=== PATIENT | female | born 1960 | race Caucasian/White ===

== ENCOUNTER 2021-08-05 22:50 | Inpatient (IN) | payer MEDICAID ==
[2021-08-05] MEDS ORDERED: DILTIAZEM DRIP BOLUS FROM BAG 1 MG SOLN IV ONE (22:58)
[2021-08-05] MEDS ORDERED: SODIUM CHLORIDE 0.9% 1,000 ML IV STA (22:58)
[2021-08-05 23:08] VITALS: TEMP 99.4
[2021-08-05 23:13] LABS: Basophils % (A) 1 %; Eosinophils # (A) 0.1 k/uL (0-0.7); Eosinophils % (A) 1 %; HCT 41.9 % (34.0-46.0); HGB 14.1 gm/dL (11.4-16.0); Lymphocytes # (A) 2.2 k/uL (1.0-4.8); Lymphocytes % (A) 32 %; MCH 31.9 pg (25.0-35.0); MCHC 33.7 g/dL (31.0-37.0); MCV 94.8 fL (80.0-100.0); Monocytes # (A) 0.3 k/uL (0-1.0); Monocytes % (A) 4 %; Neutrophils # (A) 4.3 k/uL (1.3-7.7); Neutrophils % (A) 62 %; Platelet Count 187 k/uL (150-450); RBC 4.41 m/uL (3.80-5.40); RDW 11.8 % (11.5-15.5)
[2021-08-05] MEDS ORDERED: DILTIAZEM 125 MG in SODIUM CHLORIDE 0.9% 100 ML IV SCH (23:15)
[2021-08-05 23:23] LABS: ALT 49 U/L (4-34); African American GFR (CKD) >90 (>60 ml/min/1.73 sqM); Albumin 3.7 g/dL (3.5-5.0); Anion Gap 11 mmol/L; Blood Urea Nitrogen 12 mg/dL (7-17); Calcium 8.4 mg/dL (8.4-10.2); Carbon Dioxide 21 mmol/L (22-30); Chloride 105 mmol/L (98-107); Glucose 164 mg/dL (74-99); Magnesium 1.6 mg/dL (1.6-2.3); Non-African American GFR(CKD) >90 (>60 ml/min/1.73 sqM); Sodium 137 mmol/L (137-145); Total Protein 6.5 g/dL (6.3-8.2)
[2021-08-05 23:27] LABS: AST 60 U/L (14-36); INR 0.9 (<1.2); Partial Thromboplastin Time 22.2 sec (22.0-30.0); Potassium 4.5 mmol/L (3.5-5.1); Prothrombin Time 9.9 sec (9.0-12.0)
[2021-08-05 23:28] LABS: Alkaline Phosphatase 69 U/L (38-126)
--- NOTE | 2021-08-05 23:42 | ED ---
Arrhythmia/Palpitations HPI - General Chief Complaint: Arrhythmia/Palpitations Stated Complaint: Arrhythmia Time Seen by Provider: 08/05/21 22:50 Source: patient, EMS, RN notes reviewed Limitations: no limitations - History of Present Illness Initial Comments: [id number] female history of thyroid disease who had the onset today of palpitations with elevated heart rate. Her son is a deputy director of nursing and did find in her heart rate was quite fast. EMS was called she was found to have elevated heart rate she was given adenosine twice it did slow the heart rate down and we were able identify atrial flutter. Patient denies any overt chest pain she does state that recently however she's had fever she's also lost her taste and smell. Additionally she's been under last stress lately as her within the week or so after a prolonged illness. She has no person al history of heart or lung disease. She is very anxious. MD Complaint: rapid heart beat, palpitations - Related Data Allergies Allergy/AdvReac Type Severity Reaction Status Date / Time No Known Allergies Allergy Verified 08/05/21 23:20 Review of Systems ROS Statement: Those systems with pertinent positive or pertinent negative responses have been documented in the HPI. ROS Other: All systems not noted in ROS Statement are negative. Past Medical History Past Medical History: Diabetes Mellitus, Thyroid Disorder History of Any Multi-Drug Resistant Organisms: None Reported Additional Past Surgical History / Comment(s): couple of D&C's Past Psychological History: No Psychological Hx Reported Smoking Status: Never smoker Past Alcohol Use History: Occasional Past Drug Use History: None Reported General Exam - General Exam Comments Initial Comments: This is a well-developed well-nourished awake alert oriented 3 female Limitations: no limitations General appearance: alert, anxious Head exam: Present: atraumatic, normocephalic, normal inspection Eye exam: Present: normal appearance, PERRL, EOMI. Absent: scleral icterus, conjunctival injection, periorbital swelling ENT exam: Present: normal exam, mucous membranes moist Neck exam: Present: normal inspection. Absent: tenderness, meningismus, lymphadenopathy Respiratory exam: Present: normal lung sounds bilaterally. Absent: respiratory distress, wheezes, rales, rhonchi, stridor Cardiovascular Exam: Present: tachycardia, irregular rhythm. Absent: systolic murmur, diastolic murmur, rubs, gallop, clicks GI/Abdominal exam: Present: soft, normal bowel sounds. Absent: distended, tenderness, guarding, rebound, rigid Extremities exam: Present: normal inspection, full ROM, normal capillary refill. Absent: tenderness, pedal edema, joint swelling, calf tenderness Back exam: Present: normal inspection Neurological exam: Present: alert, oriented X3, CN II-XII intact Psychiatric exam: Present: normal affect, normal mood Skin exam: Present: warm, dry, intact, normal color. Absent: rash Course Vital Signs 08/05/21 08/05/21 22:53 23:44 Temperature 99.4 F Pulse Rate 145 H 163 H Respiratory 22 22 Rate Blood Pressure 193/112 O2 Sat by Pulse 95 95 Oximetry - Reevaluation(s) Reevaluation #1: 08/06/21 00:39 Reevaluation patient finds that she is converted to a normal sinus rhythm after IV Cardizem was given. She feels much improved Reevaluation #2: 08/06/21 00:49 Post conversion EKG shows a normal sinus rhythm of 80 DC interval 138 QRS duration 80 QT/QTC 374/[address]-T wave changes EKG Findings - EKG Results: EKG: interpreted by TANK (Atrial fibrillation with rapid ventricular response rate was 73 QRS 70 QT/QTC 288/[address] configuration) Medical Decision Making - Medical Decision Making I did discuss the findings with the patient and her son was present. Patient is feeling much improved. She is converted to normal sinus rhythm I did discuss case with . Patient will be admitted for evaluation by cardiology. Troponins will be trended echocardiogram in the a.m. Patient retook 81 mg asp irin today she will get 81 mg more - Lab Data Result diagrams: 08/05/21 23:00 08/05/21 23:00 Lab Results 08/05/21 08/05/21 08/05/21 Range/Units 23:00 23:00 23:00 WBC 7.0 (3.8-10.6) k/uL RBC 4.41 (3.80-5.40) m/uL Hgb 14.1 (11.4-16.0) gm/dL Hct 41.9 (34.0-46.0) % MCV 94.8 (80.0-100.0) fL MCH 31.9 (25.0-35.0) pg MCHC 33.7 (31.0-37.0) g/dL RDW 11.8 (11.5-15.5) % Plt Count 187 (150-450) k/uL MPV 8.0 Neutrophils % 62 % Lymphocytes % 32 % Monocytes % 4 % Eosinophils % 1 % Basophils % 1 % Neutrophils # 4.3 (1.3-7.7) k/uL Lymphocytes # 2.2 (1.0-4.8) k/uL Monocytes # 0.3 (0-1.0) k/uL Eosinophils # 0.1 (0-0.7) k/uL Basophils # 0.0 (0-0.2) k/uL PT 9.9 (9.0-12.0) sec INR 0.9 (<1.2) APTT 22.2 (22.0-30.0) sec Sodium 137 (137-145) mmol/L Potassium 4.5 (3.5-5.1) mmol/L Chloride 105 (98-107) mmol/L Carbon Dioxide 21 L (22-30) mmol/L Anion Gap 11 mmol/L BUN 12 (7-17) mg/dL Creatinine 0.54 (0.52-1.04) mg/dL Est GFR (CKD-EPI)AfAm >90 (>60 ml/min/1.73 sqM) Est GFR (CKD-EPI)NonAf >90 (>60 ml/min/1.73 sqM) Glucose 164 H (74-99) mg/dL Calcium 8.4 (8.4-10.2) mg/dL Magnesium 1.6 (1.6-2.3) mg/dL Total Bilirubin 1.0 (0.2-1.3) mg/dL AST 60 H (14-36) U/L ALT 49 H (4-34) U/L Alkaline Phosphatase 69 (38-126) U/L Troponin I (0.000-0.034) ng/mL Total Protein 6.5 (6.3-8.2) g/dL Albumin 3.7 (3.5-5.0) g/dL TSH 1.300 (0.465-4.680) mIU/L 08/05/21 Range/Units 23:00 WBC (3.8-10.6) k/uL RBC (3.80-5.40) m/uL Hgb (11.4-16.0) gm/dL Hct (34.0-46.0) % MCV (80.0-100.0) fL MCH (25.0-35.0) pg MCHC (31.0-37.0) g/dL RDW (11.5-15.5) % Plt Count (150-450) k/uL MPV Neutrophils % % Lymphocytes % % Monocytes % % Eosinophils % % Basophils % % Neutrophils # (1.3-7.7) k/uL Lymphocytes # (1.0-4.8) k/uL Monocytes # (0-1.0) k/uL Eosinophils # (0-0.7) k/uL Basophils # (0-0.2) k/uL PT (9.0-12.0) sec INR (<1.2) APTT (22.0-30.0) sec Sodium (137-145) mmol/L Potassium (3.5-5.1) mmol/L Chloride (98-107) mmol/L Carbon Dioxide (22-30) mmol/L Anion Gap mmol/L BUN (7-17) mg/dL Creatinine (0.52-1.04) mg/dL Est GFR (CKD-EPI)AfAm (>60 ml/min/1.73 sqM) Est GFR (CKD-EPI)NonAf (>60 ml/min/1.73 sqM) Glucose (74-99) mg/dL Calcium (8.4-10.2) mg/dL Magnesium (1.6-2.3) mg/dL Total Bilirubin (0.2-1.3) mg/dL AST (14-36) U/L ALT (4-34) U/L Alkaline Phosphatase (38-126) U/L Troponin I 0.019 (0.000-0.034) ng/mL Total Protein (6.3-8.2) g/dL Albumin (3.5-5.0) g/dL TSH (0.465-4.680) mIU/L - Radiology Data Radiology results: report reviewed (Imaging reviewed no acute findings), image reviewed Critical Care Time Critical Care Time: Yes Total Critical Care Time: 39 Critical Care Time: Critical care time includes initial presentation with history physical labs x- rays. Discussed with paramedics upon arrival. Reevaluation patient responsive therapy discussion the patient and her son regarding findings discussion with the main physician admission orders and documentation of the above Disposition Clinical Impression: Rapid atrial fibrillation Disposition: ADMITTED IP TO THIS HOSP Condition: Stable Referrals: Keyonna Roth DO [Primary Care Provider] - 1-2 days
--- NOTE | 2021-08-06 00:08 | XR ---
EXAMINATION TYPE: XR chest 1V portable DATE OF EXAM: 08/05/2021 COMPARISON: NONE HISTORY: Tachycardia TECHNIQUE: FINDINGS: Heart is normal. Lungs are clear of infiltrate. There is no heart failure. There is no defi nite pleural effusion. There are no hilar masses. There is mild thoracic dextroscoliosis. IMPRESSION: No active cardiopulmonary disease. Normal heart.
[2021-08-06] MEDS ORDERED: ASPIRIN 81 MG PO STA (00:51)
[2021-08-06] MEDS ORDERED: ACETAMINOPHEN TAB 325 MG TAB PO PRN (00:52)
[2021-08-06] MEDS ORDERED: NALOXONE 0.4 MG/ML 1 ML VIAL IV PRN (00:52)
[2021-08-06] MEDS ORDERED: SODIUM CHLORIDE 0.9% 1,000 ML IV SCH (01:00)
[2021-08-06] MEDS ORDERED: LORazepam 2 MG/ML INJ IV STA (01:10)
[2021-08-06] MEDS ORDERED: HEPARIN SODIUM 1,000 UN/ML (10ML VL) IV ONE (03:03)
[2021-08-06] MEDS ORDERED: HEPARIN SODIUM 1,000 UN/ML (10ML VL) IV PRN (03:03)
--- NOTE | 2021-08-06 03:06 | P.HPIM ---
History of Present Illness H&P Date: 08/06/21 The patient is a 60-year-old female with a PMH of type II DM and hypothyroidism who was brought into the emergency room for an arrhythmia. The patient reports that her from leukemia a week ago, and that she has been under tremendous amount of stress recently. She also believes she has been dealing with COVID-19 as she had body aches, headaches, and has now lost her smell and taste. Patient states that earlier tonight she was wrapping up her [place]ton[place] decorations, she suddenly developed palpitations. The persisted for almost an hour, at which time she spoke with her son who is a nursing education specialist who checked her pulse which was very high. They subsequently activated EMS, who upon arrival found the patient to be in possible SVT and the patient was given adenosine with suspected a flutter noted thereafter. The patient denied experiencing chest discomfort or shortness of breath throughout the episode. She also denied any additional complaints. Denied experiencing dizziness, nausea, vomiting, diaphoresis. EKG in the emergency room revealed A. fib with RVR at 173 bpm. Chest x-ray was unremarkable. Laboratory evaluation revealed a troponin of 0.012, AST 60, ALT 49, COVID 19 PCR positive. Review of systems: Pertinent positives and negatives as discussed in HPI, a complete review of systems was performed and all other systems are negative. Physical examination: General: non toxic, no distress, appears at stated age, obese Derm: no unusual rashes/lesions no unusual ecchymoses, warm, dry Head: atraumatic, normocephalic, symmetric Eyes: EOMI, no lid lag, anicteric sclera, pupils equal round reactive to light ENT: Nose and ears atraumatic, no thrush, no pharyngeal erythema Neck: No thyromegaly, no cervical lymphadenopathy, trachea midline, supple Mouth: no lip lesion, mucus membranes moist Cardiovascular: S1S2 reg, no murmur, positive posterior tibial pulse bilateral, no edema, capillary refill less than 2 seconds Lungs: CTA bilateral, no rhonchi, no rales , no accessory muscle use Abdominal: soft, nontender to palpation, no guarding, no appreciable organomegaly, normal bowel sounds Ext: no gross muscle atrophy, muscle strength 5 out of 5 in all 4 extremities grossly, no contractures, Neuro: CN II-XI grossly intact, light touch intact all 4 extremities, finger to nose within normal limits, Psych: Alert, oriented, appropriate affect Assessment/plan Newly diagnosed A. fib with RVR -Continue with Cardizem infusion -Cardiology consulted -Echocardiogram -Heparin infusion -Cardiac monitoring -Trend troponin COVID 19, not requiring supplemental oxygen -Zinc, Vit C, Vit D Type II DM with hyperglycemia -Check A1c -Insulin sliding scale with blood glucose monitoring DVT prophylaxis -Heparin infusion The patient is admitted with an anticipated less than 2 midnight stay for evaluation of afib CODE STATUS: Full Code Discussed with: Patient Anticipated discharge date: in am Anticipated discharge place: Home Past Medical History Past Medical History: Diabetes Mellitus, Thyroid Disorder History of Any Multi-Drug Resistant Organisms: None Reported Additional Past Surgical History / Comment(s): couple of D&C's Past Psychological History: No Psychological Hx Reported Smoking Status: Never smoker Past Alcohol Use History: Occasional Past Drug Use History: None Reported - Past Family History Father Family Medical History: Diabetes Mellitus Medications and Allergies Allergies Allergy/AdvReac Type Severity Reaction Status Date / Time No Known Allergies Allergy Verified 08/05/21 23:20 Physical Exam Vitals: Vital Signs Temp Pulse Resp BP Pulse Ox 08/06/21 02:12 71 20 115/64 95 08/06/21 00:53 81 20 147/74 98 08/05/21 23:44 163 H 22 95 08/05/21 22:53 99.4 F 145 H 22 193/112 95 Intake and Output 08/05/21 08/05/21 08/06/21 14:59 22:59 06:59 Other: Weight 102.058 kg Results CBC & Chem 7: 08/05/21 23:00 08/05/21 23:00 Labs: Abnormal Lab Results - Last 24 Hours (Table) 08/05/21 08/06/21 Range/Units 23:00 00:52 Carbon Dioxide 21 L (22-30) mmol/L Glucose 164 H (74-99) mg/dL AST 60 H (14-36) U/L ALT 49 H (4-34) U/L SARS-CoV-2 (PCR) Detected A (Not Detectd)
[2021-08-06] MEDS ORDERED: HEPARIN SOD,PORK IN 0.45% NACL 25,000 UNIT in 0.45% NACL 1 250ML.BAG IV SCH (03:15)
[2021-08-06 03:55] LABS: Basophils % (A) 0 %; Eosinophils # (A) 0.1 k/uL (0-0.7); Eosinophils % (A) 1 %; HGB 13.2 gm/dL (11.4-16.0); Lymphocytes # (A) 2.2 k/uL (1.0-4.8); Lymphocytes % (A) 31 %; MCH 31.9 pg (25.0-35.0); MCHC 32.9 g/dL (31.0-37.0); MCV 96.9 fL (80.0-100.0); Mean Platelet Volume 8.1; Monocytes # (A) 0.3 k/uL (0-1.0); Monocytes % (A) 4 %; Neutrophils # (A) 4.2 k/uL (1.3-7.7); Neutrophils % (A) 62 %; Platelet Count 182 k/uL (150-450); RBC 4.13 m/uL (3.80-5.40); RDW 11.9 % (11.5-15.5); WBC 6.9 k/uL (3.8-10.6)
[2021-08-06 04:25] LABS: Partial Thromboplastin Time 23.2 sec (22.0-30.0); Prothrombin Time 10.3 sec (9.0-12.0)
[2021-08-06 08:28] LABS: Glucose,Whole Blood 138 mg/dL (75-99)
[2021-08-06] MEDS ORDERED: ASCORBIC ACID 500 MG TAB PO SCH (09:00)
[2021-08-06] MEDS ORDERED: ASPIRIN 81 MG PO SCH (09:00)
[2021-08-06] MEDS ORDERED: METOPROLOL TARTRATE 25 MG TAB PO SCH (09:00)
[2021-08-06] MEDS ORDERED: CHOLECALCIFEROL 125 MCG (5000 IU) TABLET PO SCH (09:00)
[2021-08-06] MEDS ORDERED: ZINC SULFATE 220 MG CAP PO SCH (09:00)
[2021-08-06] MEDS: INSULIN ASPART (NovoLOG) 100 UNIT/ML VIAL SQ SCH ×2 (09:56→12:26)
--- NOTE | 2021-08-06 11:19 | P.CRDCN ---
History of Present Illness Consult date: 08/06/21 History of present illness: CHIEF COMPLAINT: afib with rvr HISTORY OF PRESENT ILLNESS: This is a 60 year old female with a past medical history significant for diabetes and hypothyroidism. Patient does not follow with a charge preparation technician. We have been asked to see the patient in consultation for afib with RVR. The patient presented to the hospital with a chief complaint of palpitations. The patient was found to be in A. fib with RVR. The patient denies a previous history of atrial fibrillation. The patient was started on IV Cardizem. She has since converted to sinus mechanism. The patient was also found to be positive for Covid. Patient is vaccinated and did receive her booster. DIAGNOSTICS: EKG reveals atrial fibrillation with RVR Chest xray negative for acute process Laboratory data: WBC 6.5. Hemoglobin 13.2. Platelet count 182. Sodium 137. Potassium 4.5. BUN 12. Creatinine 0.54. Troponin 0.019. 0.048. 0.060. Current home cardiac medications include aspirin 81mg daily REVIEW OF SYSTEMS: Thorough review of systems not completed secondary to limited bijan luation/examination due to Covid19 PHYSICAL EXAM: Thorough physical exam not completed secondary to limited evaluation/examination due to Covid19 ASSESSMENT: Palpitations New-onset paroxysmal fibrillation with RVR Diabetes Hypothyroidism PLAN: Obtain 2-D echo to assess cardiac structure and function Begin Metoprolol 25 mg in the morning and 12.5 mg at HS Decrease Synthroid to 125mcg per Dr. Castillo No anticoagulation per Dr. Castillo. Continue with aspirin 81mg daily. Patient may be discharged home today and follow up with Dr. Castillo outpatient Nurse practitioner note has been reviewed by physician. Signing provider agrees with the documented findings, assessment, and plan of care. Past Medical History Past Medical History: Diabetes Mellitus, Thyroid Disorder History of Any Multi-Drug Resistant Organisms: None Reported Additional Past Surgical History / Comment(s): couple of D&C's Past Psychological History: No Psychological Hx Reported Smoking Status: Never smoker Past Alcohol Use History: Occasional Past Drug Use History: None Reported - Past Family History Father Family Medical History: Diabetes Mellitus Medications and Allergies Home Medications Medication Instructions Recorded Confirmed Type Aspirin EC [Ecotrin Low Dose] 81 mg PO DAILY 08/06/21 08/06/21 History Cinnamon Bark [Cinnamon] 500 mg PO DAILY 08/06/21 08/06/21 History Garlic 1 tab PO DAILY 08/06/21 08/06/21 History Glucosam/Chond/Hyalu/Cf Borate 1 tab PO HS 08/06/21 08/06/21 History [Move Free Joint Health Tablet] Levothyroxine Sodium [Synthroid] 150 mcg PO DAILY 08/06/21 08/06/21 History Multivit-Min/Iron/Folic/Lutein 1 tab PO DAILY 08/06/21 08/06/21 History [Centrum Silver Women Tablet] [place]-3 Fatty Acids [[place]-3] 1,000 mg PO DAILY 08/06/21 08/06/21 History Allergies Allergy/AdvReac Type Severity Reaction Status Date / Time No Known Allergies Allergy Verified 08/06/21 07:08 Physical Exam Vitals: Vital Signs Temp Pulse Resp BP Pulse Ox 08/06/21 05:49 74 15 142/70 95 08/06/21 02:12 71 20 115/64 95 08/06/21 00:53 81 20 147/74 98 08/05/21 23:44 163 H 22 95 08/05/21 22:53 99.4 F 145 H 22 193/112 95 Intake and Output 08/05/21 08/06/21 08/06/21 22:59 06:59 14:59 Other: Weight 102.058 kg Results 08/06/21 02:57 08/05/21 23:00 Cardiac Enzymes 08/05/21 08/05/21 08/06/21 Range/Units 23:00 23:00 02:57 AST 60 H (14-36) U/L Troponin I 0.019 0.048 H* (0.000-0.034) ng/mL 08/06/21 Range/Units 05:54 AST (14-36) U/L Troponin I 0.060 H* (0.000-0.034) ng/mL Coagulation 08/05/21 08/06/21 Range/Units 23:00 03:53 PT 9.9 10.3 (9.0-12.0) sec APTT 22.2 23.2 (22.0-30.0) sec CBC 08/05/21 08/06/21 Range/Units 23:00 02:57 WBC 7.0 6.9 (3.8-10.6) k/uL RBC 4.41 4.13 (3.80-5.40) m/uL Hgb 14.1 13.2 (11.4-16.0) gm/dL Hct 41.9 40.0 (34.0-46.0) % Plt Count 187 182 (150-450) k/uL Comprehensive Metabolic Panel 08/05/21 Range/Units 23:00 Sodium 137 (137-145) mmol/L Potassium 4.5 (3.5-5.1) mmol/L Chloride 105 (98-107) mmol/L Carbon Dioxide 21 L (22-30) mmol/L BUN 12 (7-17) mg/dL Creatinine 0.54 (0.52-1.04) mg/dL Glucose 164 H (74-99) mg/dL Calcium 8.4 (8.4-10.2) mg/dL AST 60 H (14-36) U/L ALT 49 H (4-34) U/L Alkaline Phosphatase 69 (38-126) U/L Total Protein 6.5 (6.3-8.2) g/dL Albumin 3.7 (3.5-5.0) g/dL Current Medications Generic Name Dose Route Start Last Admin Trade Name Freq PRN Reason Stop Dose Admin Acetaminophen 650 mg 08/06/21 00:52 Acetaminophen Tab 325 Mg Tab PO Q6HR PRN Mild Pain or Fever > 100.5 Ascorbic Acid 1,000 mg 08/06/21 09:00 Ascorbic Acid 500 Mg Tab PO DAILY [facility] Aspirin 81 mg 08/06/21 09:00 Aspirin 81 Mg PO DAILY [facility] Cholecalciferol 125 mcg 08/06/21 09:00 Cholecalciferol 125 Mcg (5000 Iu) Tablet PO DAILY [facility] Heparin Sodium (Porcine) 0 unit 08/06/21 03:03 Heparin Sodium 1,000 Un/Ml (10ml Vl) IV PER PROTOCOL PRN Low PTT Protocol Sodium Chloride 1,000 mls @ 75 mls/hr 08/05/21 22:58 08/05/21 23:37 Saline 0.9% IV 08/06/21 12:17 75 mls/hr .[id number] STA Administration Sodium Chloride 1,000 mls @ 20 mls/hr 08/06/21 01:00 08/06/21 02:12 Saline 0.9% IV Not Given .Q24H [facility] Insulin Aspart 0 unit 08/06/21 07:30 Insulin Aspart (Novolog) 100 Unit/Ml Vial SQ ACHS [facility] Protocol Metoprolol Tartrate 25 mg 08/06/21 09:00 Metoprolol Tartrate 25 Mg Tab PO DAILY [facility] Naloxone HCl 0.2 mg 08/06/21 00:52 Naloxone 0.4 Mg/Ml 1 Ml Vial IV Q2M PRN Opioid Reversal Zinc Sulfate 220 mg 08/06/21 09:00 Zinc Sulfate 220 Mg Cap PO DAILY [facility] Intake and Output 08/05/21 08/06/21 08/06/21 22:59 06:59 14:59 Other: Weight 102.058 kg 08/06/21 02:57 08/05/21 23:00
[2021-08-06 11:29] VITALS: RESP 16
[2021-08-06 12:26] LABS: Glucose,Whole Blood 143 mg/dL (75-99)
[2021-08-06 12:58] VITALS: BP 121/58; PULSE 67
--- NOTE | 2021-08-06 12:59 | ECHOF ---
Referral Reason:New-onset atrial fibrillation MEASUREMENTS -------- HEIGHT: 165.1 cm WEIGHT: 102.1 kg BP: 142/70 RVIDd: 3.4 cm (< 3.3) IVSd: 1.4 cm (0.6 - 1.1) LVIDd: 3.8 cm (3.9 - 5.3) LVPWd: 1.3 cm (0.6 - 1.1) IVSs: 1.8 cm LVIDs: 2.6 cm LVPWs: 1.9 cm LAESV Index (A-L): 35.18 ml/m MV E Naseem: 0.87 m/s MV DecT: 229 ms MV A Naseem: 0.82 m/s MV E/A Ratio: 1.05 RAP: 5.00 mmHg RVSP: 32.81 mmHg FINDINGS -------- Sinus rhythm. This was a technically difficult study with suboptimal apical views. The left ventricular size is normal. There is moderate concentric left ventricular hypertrophy. O verall left ventricular systolic function is normal with, an EF between 55 - 60 %. The right ventricle is mildly enlarged. LA is moderately dilated 34-39 ml/m2 The right atrial size is normal. 3.0mg of Lumason was utilized for enhancement of images Interatrial and interventricular septum intact. There is no evidence of aortic regurgitation. There is no evidence of aortic stenosis. Mild mitral regurgitation is present. Mild tricuspid regurgitation present. There is no evidence of pulmonary hypertension. The right v entricular systolic pressure, as measured by Doppler, is 32.81mmHg. There is no pulmonic regurgitation present. The aortic root size is normal. Echo free space represents a pericardial fat pad. There is no pericardial effusion. CONCLUSIONS -------- 1. The left ventricular size is normal. 2. There is moderate concentric left ventricular hypertrophy. 3. Overall left ventricular systolic function is normal with, an EF between 55 - 60 %. 4. The right ventricle is mildly enlarged. 5. LA is moderately dilated 34-39 ml/m2 6. Mild mitral regurgitation is present. 7. Mild tricuspid regurgitation present. CALIBRATION TESTER: Kiley Epperson [facility]
--- NOTE | 2021-08-06 13:20 | P.DS ---
Providers Date of admission: 08/06/21 10:54 Expected date of discharge: 08/06/21 Attending physician: Noelle Jauregui MD Consults: 08/06/21 00:53 Consult Physician Routine Consulting Provider: Nilam Castillo Consult Reason/Comments: New-onset atrial fibrillation with a rapid ventricular response Do you want consulting provider notified?: Yes, Notify in am Primary care physician: [facility] Course: 60-year-old female with a PMH of type II DM and hypothyroidism who was brought into the emergency room for an arrhythmia. The patient reports that her from leukemia a week ago, and that she has been under tremendous amount of stress recently. She also believes she has been dealing with COVID-19 as she had body aches, headaches, sinus drainage, and has now lost her smell and taste. Patient was wrapping up her [place] decorations, when she suddenly developed palpitations. They persisted for almost an hour, at which time she spoke with her son who is a nursing home administrator who checked her pulse which was very high. They subsequently activated EMS, who upon arrival found the patient to be in possible SVT and the patient was given adenosine with suspected a flutter noted thereafter. The patient denied experiencing chest discomfort or shortness of breath throughout the episode. She also denied any additional complaints. Denied experiencing dizziness, nausea, vomiting, diaphoresis. EKG in the emergency room revealed A. fib with RVR at 173 bpm. Chest x-ray was unremarkable. Laboratory evaluation revealed a troponin of 0.012, AST 60, ALT 49, COVID 19 PCR positive. Patient was subsequently admitted for further evaluation by cardiology. Troponin peaked up to 0.060. Patient was started on Cardizem drip after a couple hours on it she converted back to normal sinus rhythm. Echocardiogram showed normal EF with concentric LVH. Per cardiology recommendations levothyroxine dose was decreased from 150 mics daily to 125 mics daily. Her TSH was within the normal range. Patient was also started on metoprolol 12.5mg daily. Currently patient is feeling back to normal. She'll be discharged home in stable condition. Patient Condition at Discharge: Stable Plan - Discharge Summary New Discharge Prescriptions: New Metoprolol Tartrate [Lopressor] 12.5 mg PO HS 30 Days #30 tab Levothyroxine Sodium [Synthroid] 125 mcg PO DAILY@0630 60 Days #60 tab Continue Aspirin EC [Ecotrin Low Dose] 81 mg PO DAILY Cinnamon Bark [Cinnamon] 500 mg PO DAILY Glucosam/Chond/Hyalu/Cf Borate [Move Free Joint Health Tablet] 1 tab PO HS Multivit-Min/Iron/Folic/Lutein [Centrum Silver Women Tablet] 1 tab PO DAILY Garlic 1 tab PO DAILY [place]-3 Fatty Acids [[place]-3] 1,000 mg PO DAILY Discontinued Levothyroxine Sodium [Synthroid] 150 mcg PO DAILY Discharge Medication List Aspirin EC [Ecotrin Low Dose] 81 mg PO DAILY 08/06/21 [History] Cinnamon Bark [Cinnamon] 500 mg PO DAILY 08/06/21 [History] Garlic 1 tab PO DAILY 08/06/21 [History] Glucosam/Chond/Hyalu/Cf Borate [Move Free Joint Health Tablet] 1 tab PO HS 08/06/21 [History] Levothyroxine Sodium [Synthroid] 125 mcg PO DAILY@0630 60 Days #60 tab 08/06/21 [Rx] Metoprolol Tartrate [Lopressor] 12.5 mg PO HS 30 Days #30 tab 08/06/21 [Rx] Multivit-Min/Iron/Folic/Lutein [Centrum Silver Women Tablet] 1 tab PO DAILY 08/06/21 [History] [place]-3 Fatty Acids [[place]-3] 1,000 mg PO DAILY 08/06/21 [History] Follow up Appointment(s)/Referral(s): Keyonna Roth DO [Primary Care Provider] - 1-2 days
[2021-08-06] MEDS ORDERED: METOPROLOL TARTRATE 12.5 MG TAB PO SCH (21:00)
[2021-08-07] MEDS ORDERED: LEVOTHYROXINE 125 MCG TAB PO SCH (06:30)
== END 2021-08-06 14:53 | disposition home or self-care (01) | DRG 308 ==
LOC: EC 22:50 → 3SCARD 08-06 00:52 → OBSVTOIN 08-06 10:54 → 3SCARD 08-06 13:11
PROVIDERS: ADMIT Internal Medicine; ATTEND Internal Medicine
DX: I48.0 Paroxysmal atrial fibrillation (principal); U07.1 COVID-19; I48.92 Unspecified atrial flutter; E11.65 Type 2 diabetes mellitus with hyperglycemia; I47.1 Supraventricular tachycardia; F43.20 Adjustment disorder, unspecified; E03.9 Hypothyroidism, unspecified; I08.1 Rheumatic disorders of both mitral and tricuspid valves; Z79.82 Long term (current) use of aspirin; Z79.890 Hormone replacement therapy; Z83.3 Family history of diabetes mellitus
CPT/HCPCS: 36415; 71045; 80053; 83036; 83735; 84443; 84484; 85025; 85610; 85730; 87636; 93005; 93306; 96365; 96375; 99291